=== PATIENT | male | born 1975 | race Caucasian/White ===

== ENCOUNTER → 2017-04-19 | Outpatient (CLI) | payer OTHER ==
[~2017-04-19] MED LIST: EFFSR75 PO; METO100T7 PO; MULTTAB58 PO
--- NOTE | 2017-04-19 13:43 | DIAGNOSTIC IMAGING REPORT ---
L LOWER EXTREMITY WITHOUT HISTORY: 41 years-old Male LEFT FEMUR PAIN, HX OF FX,EVAL FOR FX SCREW acute left femur pain with history of remote left femoral fracture. COMPARISON: None available TECHNIQUE: Multiple axial CT images of left lower extremity were obtained without contrast. Coronal and sagittal reformatted images were obtained from the axial data set and submitted for review. A dose lowering technique was used consistent with the principals of DANIELLE. FINDINGS: Postoperative changes are noted about the medial inguinal region and medial thigh. No large joint effusion identified. There is moderate atrophy with fatty changes noted involving the sartorius musculature as seen on image 352 of series 4. The remaining 5 musculature appears to be within normal limits. Imaged intrapelvic structures are unremarkable with mild urinary bladder distention. Remote fracture deformity of the mid femoral shaft is present which appears completely healed demonstrating areas of surrounding dystrophic calcification including linear calcifications within the myofascial plane between the abductor longus and vastus medialis musculature (nicely seen on image 272 series 4). There is a large intramedullary donita within the femoral shaft with a proximal lateral approach fixation screw fractured as seen on image 120 of series 3. No evidence of hardware loosening. Ghost screw track is noted on image 100 series 3 compatible with prior screw removal. 2 distal screws are intact. No evidence of hardware loosening. There is no acute fracture or dislocation identified. There are mild degenerative changes about the left hip with mild tricompartment degenerative changes also seen within the left knee. IMPRESSION: 1. Healed remote fracture deformity of the mid femoral diaphysis with intramedullary femoral donita in place. The proximal most fixation screw is fractured as above. No evidence of hardware loosening or malalignment. 2. Moderate fatty atrophy of the sartorius musculature. Dystrophic appearing linear calcifications are present within the myofascial plane between the abductor longus and vastus medialis musculature, likely from remote trauma. The above report was generated using voice recognition software. It may contain grammatical, syntax or spelling errors. Electronically signed by: Jin De Jesus M.D. 04/19/2017 1:41 PM Dictated Date/Time: 04/19/2017 1:30 PM
== END | disposition home or self-care (01) ==
LOC: C.CTS 12:49
PROVIDERS: ATTEND Physician Assistant
DX: M89.8X5 Other specified disorders of bone, thigh (principal); Z87.81 Personal history of (healed) traumatic fracture